=== PATIENT | female | born 1985 | race Caucasian/White ===

== ENCOUNTER 2018-01-24 10:42 | Emergency (ER) | payer SELFPAY ==
[2018-01-24 10:55] VITALS: O2SAT 99
--- NOTE | 2018-01-24 11:19 | ED.PDOC ---
History of Present Illness - General Chief Complaint: Dental/Mouth Stated Complaint: tooth pain x3 days Time Seen by Provider: 01/24/18 11:19 Source: patient Exam Limitations: no limitations - History of Present Illness Initial Comments: Darline Pimentel 33 y/o male stated that her gums swelled up for the last 3 days and painful to chew on it has dental caries and trying to get an appointment last Wednesday but dentist busy. Timing/Duration: other - 3 days EENT Location: dental Prearrival Treatment: no prearrival treatment Presenting Symptoms: dental pain Improving Factors: rest - from chewing Worsening Factors: eating Associated Symptoms: tooth pain Allergies/Adverse Reactions: Allergies NO KNOWN ALLERGY Allergy (Unverified 09/29/14 08:50) Home Medications: Ambulatory Orders Phenazopyridine HCl [Pyridium] 200 mg PO TID PRN #10 tab 09/29/14 Sulfa/Trimeth 800/160 (Ds) Tab [Bactrim DS Tab] 1 ea PO BID #14 tab 09/29/14 Clindamycin HCl 300 mg PO BID #40 cap 01/24/18 Tramadol HCl 50 mg PO Q4HR PRN #20 tab 01/24/18 Review of Systems - Review of Systems Constitutional: States: no symptoms reported EENTM: States: see HPI Respiratory: States: no symptoms reported Cardiology: States: no symptoms reported Gastrointestinal/Abdominal: States: no symptoms reported Genitourinary: States: no symptoms reported Musculoskeletal: States: no symptoms reported Skin: States: no symptoms reported Past Medical History (General) - Patient Medical History Hx Seizures: No Hx Stroke: No Hx Dementia: No Hx Asthma: No Hx of COPD: No Hx Cardiac Disorders: No Hx Congestive Heart Failure: No Hx Pacemaker: No Hx Hypertension: No Hx Thyroid Disease: No Hx Diabetes: No Hx Gastroesophageal Reflux: No Hx Renal Disease: No Hx Cancer: No Hx of HIV: No Hx Hepatitis C: No Hx MRSA: No Surgical History: other - c- sections x 3 - Vaccination History Hx Influenza Vaccination: No Hx Pneumococcal Vaccination: No - Social History Hx Tobacco Use: Yes - quit 8 year ago Hx Alcohol Use: Yes - rarely Hx Substance Use: No Hx Substance Use Treatment: No Hx Depression: No - Activities of Daily Living Patient Lives Alone: No - Female History Hx Last Menstrual Period: 01/20/18 Patient : No Family Medical History - Family History Mother Living Status: Still Living Hx Family Hypertension: Yes Hx Family Diabetes: Yes Hx Family;Other: hypoglycemic Physical Exam - Physical Exam General Appearance: Alert, Comfortable, No apparent distress Eye Exam: bilateral normal Ear Exam: bilateral ear: auricle normal, canal normal, TM normal Nasal Exam: normal inspection Throat Exam: normal mouth inspection, pharynx normal, dental tenderness - right molar with decayed tooth 3rd molar Neck: non-tender, full range of motion, supple, trachea midline Cardiovascular/Respiratory: regular rate, rhythm, no M/R/G, normal peripheral pulses Abdominal Exam: non-tender Neurologic: alert, oriented x 3 Skin Exam: normal color, warm/dry Progress - Progress Progress: 01/24/18 11:29 Vital Signs - 8 hr 01/24/18 10:47 Temperature 99.5 F Pulse Rate [ 83 left brachial] Respiratory 20 Rate Blood Pressure 136/97 [left brachial] O2 Sat by Pulse 99 Oximetry Departure - Departure Clinical Impression: Dental abscess, Acute pulpitis Time of Disposition: 11:29 Disposition: Discharge to Home or Self Care Condition: Fair Departure Forms: ED Discharge - Pt. Copy, Patient Portal Self Enrollment Instructions: DI for Dental Pain Diet: other - soft diet until better Prescriptions: Tramadol HCl 50 mg PO Q4HR PRN #20 tab PRN Reason: Pain Clindamycin HCl 300 mg PO BID #40 cap Home Medications: Ambulatory Orders Phenazopyridine HCl [Pyridium] 200 mg PO TID PRN #10 tab 09/29/14 Sulfa/Trimeth 800/160 (Ds) Tab [Bactrim DS Tab] 1 ea PO BID #14 tab 09/29/14 Clindamycin HCl 300 mg PO BID #40 cap 01/24/18 Tramadol HCl 50 mg PO Q4HR PRN #20 tab 01/24/18 Additional Instructions: Keep appointment with Dentist call clinic 25 January 2018
[2018-01-24] MEDS ORDERED: CLINDAMYCIN HCL CAP 150 MG CAP PO ONE (11:30)
[2018-01-24] MEDS ORDERED: CLINDAMYCIN PHOSPHATE 150 MG/ML VIAL IM ONE (11:30)
[2018-01-24 11:51] VITALS: BP 133/85
[2018-01-24 12:01] VITALS: TEMP 98.4
== END 2018-01-24 12:04 | disposition home or self-care (01) ==
LOC: ER 10:42
DX: K04.7 Periapical abscess without sinus (principal); K04.01 Reversible pulpitis; K02.9 Dental caries, unspecified; Z87.891 Personal history of nicotine dependence

== ENCOUNTER → 2018-06-29 | Outpatient (CLI) | payer OTHER ==
--- NOTE | 2018-06-30 19:56 | MAM ---
EXAM DESCRIPTION: Diagnostic Mammo,Bilateral: Digital Mammography CLINICAL HISTORY: 33 yearsFemaleBREAST DISCHARGE AND PAIN . Green nipple discharge occasionally left breast. 4 weeks. Pain and tenderness upper outer quadrant. Occasional pain in right breast. No personal history of breast cancer. No history of infection. Remote family history of breast cancer. Childbirth. Premenopausal. No HRT. Lifetime risk of developing breast cancer (Tyrer-Cuzick model) percentage is less than 35 years. COMPARISON: Targeted left breast ultrasound included with this examination. . TECHNIQUE: Bilateral CC LM MLO projection full-field images, digital mammographic tomosynthesis technique. Bilateral 2-D digital full-field MLO images. CAD not utilized. FINDINGS: The breast parenchymal density pattern is: Heterogeneously dense breast tissue, which may obscure small masses. Extremely dense breast tissue, which lowers the sensitivity of mammography. No skin thickening or nipple retraction solitary microcalcification mid right breast. Left axillary lymph node. Focal asymmetry in the upper outer quadrant of the middle third of the right breast, 1:30 clock position, approximately 6 cm from the nipple. Also focal asymmetry in the retroareolar left breast. Ultrasound: Scanning of the retroareolar left breast in 4 quadrants. Predominantly fibroglandular elements with minimal fatty tissue. No dominant solid mass or distinct cyst. Scanning at the 2:00 position of the left breast in the middle third, 4 cm from the nipple. Oval-shaped predominantly cystic structure with circumscribed harding measuring 7.2 x 3.4 x 7.3 mm. Wider than tall orientation and posterior acoustic enhancement. A second completely anechoic structure with circumscribed margins and posterior acoustic enhancement measures 3.4 x 3.4 x 1.7 cm. No dominant solid mass. No large calcifications or parenchymal edema. No overlying skin changes. Normal vascularity. IMPRESSION: Benign exam. BIRAD CATEGORY: 2 BENIGN FINDINGS. RECOMMENDATIONS: FOLLOW UP: Begin routine digital bilateral mammographic screening, at age 40. Any additional breast imaging for this clinical finding should be based upon additional clinical findings. The FINDINGS and the FOLLOW-UP plan were reviewed in person with the patient after the examination. Written communication explaining the IMPRESSION and FOLLOW-UP will be mailed to the patient and referring care provider. According to the [employer], yearly mammograms are recommended starting at age 40 and continuing as long as a woman is in good health. Any breast change noted on a breast self-exam should be reported promptly to the patient's healthcare provider. Breast MRI is recommended for women with an approximately 20-25% or greater lifetime risk of breast cancer, including women with a strong family history of breast or ovarian cancer and women who have been treated for Hodgkin's disease. A negative mammographic report should not delay tissue diagnosis in patients with significant clinical history or physical findings. Extremely dense breast tissue limits the sensitivity of digital mammography. Electronically signed by: George Hugo MD 06/30/2018 7:53 PM [facility]
--- NOTE | 2018-06-30 19:57 | US ---
EXAM DESCRIPTION: Breast,Left: Ultrasound CLINICAL HISTORY: 33 yearsFemaleLEFT BREAST DISCHARGE COMPARISON: Digital diagnostic tomosynthesis bilateral breasts on this visit. TECHNIQUE: Transcutaneous scanning of the left breast utilizing salmeron-scale and Doppler modes. Scanning performed by the furnace unloader and Dr. Hugo. FINDINGS: Scanning of the retroareolar left breast in 4 quadrants. Predominantly fibroglandular elements with minimal fatty tissue. No dominant solid mass or distinct cyst. Scanning at the 2:00 position of the left breast in the middle third, 4 cm from the nipple. Oval-shaped predominantly cystic structure with circumscribed harding measuring 7.2 x 3.4 x 7.3 mm. Wider than tall orientation and posterior acoustic enhancement. A second completely anechoic structure with circumscribed margins and posterior acoustic enhancement measures 3.4 x 3.4 x 1.7 cm. No dominant solid mass. No large calcifications or parenchymal edema. No overlying skin changes. Normal vascularity. IMPRESSION: 1. Bi-Rads Category 2: Benign. 2. Please refer to bilateral diagnostic digital breast tomosynthesis examination and report on this visit. The FINDINGS and the FOLLOW-UP plan were reviewed in person with the patient after the examination. Written communication explaining the IMPRESSION and FOLLOW-UP will be mailed to the patient and referring care provider. Electronically signed by: George Hugo MD 06/30/2018 7:55 PM [employer]
== END ==
LOC: MAMMO 09:06
PROVIDERS: ATTEND Family Medicine
DX: N64.52 Nipple discharge (principal)

== ENCOUNTER 2018-09-27 09:38 | Emergency (ER) | payer SELFPAY ==
--- NOTE | 2018-09-27 10:20 | ED.PDOC ---
History of Present Illness - General Chief Complaint: Lower Extremity Injury Stated Complaint: RIGHT ANKLE PAIN Time Seen by Provider: 09/27/18 10:08 Source: patient Exam Limitations: no limitations - History of Present Illness Initial Comments: Darline Pimentel 33 y/o female stated sprained right ankle 09 September 2018 stating still with sharp pain goes up the leg since it happened.Aggravated with prolonged walking and and bending right foot downward. Occurred: other - 09 September 2018 Pain - Lower Extremity: moderate: Right Ankle Method of Injury: twisted Improving Factors: rest Worsening Factors: movement Associated Symptoms: pain Allergies/Adverse Reactions: Allergies NO KNOWN ALLERGY Allergy (Unverified 09/29/14 08:50) Home Medications: Ambulatory Orders Tramadol HCl 50 mg PO TID PRN #3 tab 09/27/18 Review of Systems - Review of Systems Musculoskeletal: States: see HPI, joint pain - right ankle All other Systems: Reviewed and Negative, No Change from Baseline Past Medical History (General) - Patient Medical History Hx Seizures: No Hx Stroke: No Hx Dementia: No Hx Asthma: No Hx of COPD: No Hx Cardiac Disorders: No Hx Congestive Heart Failure: No Hx Pacemaker: No Hx Hypertension: No Hx Thyroid Disease: No Hx Diabetes: No Hx Gastroesophageal Reflux: No Hx Renal Disease: No Hx Cancer: No Hx of HIV: No Hx Hepatitis C: No Hx MRSA: No Surgical History: other - Vaccination History Hx Influenza Vaccination: No Hx Pneumococcal Vaccination: No - Social History Hx Tobacco Use: Yes - quit 8 year ago Hx Alcohol Use: Yes - rarely Hx Substance Use: No Hx Substance Use Treatment: No Hx Depression: No - Female History Patient is a Female of Child Bearing Age (10 -59 yrs old): Yes Hx Last Menstrual Period: 09/22/18 Patient : No Family Medical History - Family History Mother Living Status: Still Living Hx Family Hypertension: Yes Hx Family Diabetes: Yes Hx Family;Other: hypoglycemic Physical Exam - Physical Exam General Appearance: Alert, Comfortable, No apparent distress Eyes, Ears, Nose, Throat: normal ENT inspection Neck: supple, normal inspection Cardiovascular/Respiratory: regular rate, rhythm, normal peripheral pulses, normal breath sounds Gastrointestinal/Abdominal: non-tender Back: normal inspection, no CVA tenderness, no vertebral tenderness Thigh/Hip: normal inspection, non-tender, no evidence of injury, normal ROM Leg: normal inspection, non-tender, no evidence of injury Knee: normal inspection, non-tender, no evidence of injury, normal ROM Ankle: limited ROM - plantar flexion and inversion right, soft tissue tenderness - lateral malleolus right Foot: normal inspection, no evidence of injury Neuro/Tendon: normal sensation, normal motor functions, normal tendon functions, responds to pain Mental Status: alert, oriented x 3 Skin: normal color, warm/dry Progress - Progress Progress: 09/27/18 10:25 Vital Signs - 8 hr 09/27/18 09:49 Temperature 98.3 F Pulse Rate [ 79 left brachial] Respiratory 16 Rate Blood Pressure 144/102 [left brachial] O2 Sat by Pulse 98 Oximetry 09/27/18 11:19 Discuss xray result with patient - EKG/XRAY/CT XRAY: ankle - no fracture right Departure - Departure Clinical Impression: Ankle sprain Qualifiers: Encounter type: initial encounter Involved ligament of ankle: unspecified ligament Laterality: right Qualified Code(s): S93.401A - Sprain of unspecified ligament of right ankle, initial encounter Time of Disposition: 11:15 Disposition: Discharge to Home or Self Care Condition: Fair Departure Forms: ED Discharge - Pt. Copy, Patient Portal Self Enrollment Instructions: Ankle Sprain, Ankle Sprain (DC) Prescriptions: Tramadol HCl 50 mg PO TID PRN #3 tab PRN Reason: Pain Home Medications: Ambulatory Orders Tramadol HCl 50 mg PO TID PRN #3 tab 09/27/18 Additional Instructions: Need to sign up with primary Md for follow up ;May take over the counter Aleve 1-2 tablets am/pm for pain
--- NOTE | 2018-09-27 10:59 | RAD ---
EXAM DESCRIPTION: Right tibia and fibula, 2 views CLINICAL HISTORY: Right tibia and fibula pain FINDINGS/ IMPRESSION: Normal mineralization. No fracture of the tibia or fibula No advanced arthrosis of the knee or ankle No diagnostic soft tissue abnormality Electronically signed by: Atif Abbasi MD 09/27/2018 10:57 AM CDT
--- NOTE | 2018-09-27 10:59 | RAD ---
EXAM DESCRIPTION: Right ankle, 3 views CLINICAL HISTORY: Ankle pain FINDINGS/ IMPRESSION: Normal mineralization. Normal alignment No focal demineralization or inflammatory erosion. No fracture or acute osteochondral lesion. Ankle mortise is symmetric. No diagnostic soft tissue abnormality Electronically signed by: Atif Abbasi MD 09/27/2018 10:57 AM CDT
[2018-09-27 11:36] VITALS: BP 137/89; TEMP 97.1; O2SAT 95
== END 2018-09-27 11:35 | disposition home or self-care (01) ==
LOC: ER 09:38
DX: S93.401A Sprain of unspecified ligament of right ankle, initial encounter (principal); X50.9XXA Other and unspecified overexertion or strenuous movements or postures, initial encounter; Y93.01 Activity, walking, marching and hiking; Y92.9 Unspecified place or not applicable; Z87.891 Personal history of nicotine dependence